=== PATIENT | male | born 1995 | race Caucasian/White ===

== ENCOUNTER 2018-09-11 03:49 | Emergency (ER) | payer OTHER ==
[~2018-09-11] VITALS: Ht 195.6 cm; Wt 145.1 kg
[2018-09-11 03:50] VITALS: BP 159/84
[2018-09-11] MEDS ORDERED: KETOROLAC 30 MG/ML VIAL. IM ONE (04:00)
--- NOTE | 2018-09-11 04:45 | RAD ---
INDICATION: Left ankle swelling COMPARISON: None. TECHNIQUE: Grayscale, color and doppler ultrasound images were obtained of the left lower extremity venous vasculature. LEFT: No thrombus identified in the common femoral vein, femoral vein, popliteal vein or visualized calf veins. IMPRESSION: 1. No thrombus identified in deep venous system of the left lower extremity. Electronically signed by: Alex Tenorio MD (09/11/2018 4:42 AM) [facility]
[2018-09-11] MEDS ORDERED: HYDR-3164 PO (05:09)
[2018-09-11] MEDS ORDERED: INDO50CA5 PO (05:09)
--- NOTE | 2018-09-11 05:54 | PHYS DOC ---
Past Medical History Past Medical History: No Pertinent History Past Surgical History: No Surgical History Alcohol Use: Occasionally Drug Use: None Adult General Chief Complaint Chief Complaint: LOWER EXT PAIN HPI HPI Patient is a 22 year old male who presents with ankle pain. No definite trauma he woke up with this he got worse no fever he does not recall a previous history of this. He has not tried anything for relief. He did take a blister on his heel but otherwise does not identify any trauma. Review of Systems Review of Systems Constitutional: Denies fever or chills [] Eyes: Denies change in visual acuity, redness, or eye pain [] HENT: Denies nasal congestion or sore throat [] Respiratory: Denies cough or shortness of breath [] Cardiovascular: No additional information not addressed in HPI [] GI: Denies abdominal pain, nausea, vomiting, bloody stools or diarrhea [] : Denies dysuria or hematuria [] Musculoskeletal: Denies back pain or joint pain [] Integument: Denies rash or skin lesions [] Neurologic: Denies headache, focal weakness or sensory changes [] Endocrine: Denies polyuria or polydipsia [] All other systems were reviewed and found to be within normal limits, except as documented in this note. Current Medications Current Medications Current Medications Medications (Trade) Dose Ordered Sig/[facility] Start Time Stop Time Status Last Admin Dose Admin Ketorolac Tromethamine (Toradol 30mg Vial) 30 mg 1X ONCE 09/11/18 04:00 09/11/18 04:01 DC 09/11/18 04:12 30 MG Allergies Allergies Allergies Coded Allergies Type Severity Reaction Last Updated Verified No Known Drug Allergies 09/11/18 No Physical Exam Physical Exam Constitutional: Well developed, well nourished, no acute distress, non-toxic appearance. [] HENT: Normocephalic, atraumatic, bilateral external ears normal, oropharynx moist, no oral exudates, nose normal. [] Eyes: PERRLA, EOMI, conjunctiva normal, no discharge. [] Neck: Normal range of motion, no tenderness, supple, no stridor. [] Cardiovascular:Heart rate regular rhythm, no murmur [] Lungs & Thorax: Bilateral breath sounds clear to auscultation [] Abdomen: Bowel sounds normal, soft, no tenderness, no masses, no pulsatile masses. [] Skin: Warm, dry, no erythema, no rash. [] ext: There is moderate tenderness of the left ankle possible effusion noted no erythema no warmth pulses present pain is present with active range of motion and some mild pain with passive range of motion as well no calf tenderness small healing blister on the heel Current Patient Data Vital Signs Vital Signs Date Time Temp Pulse Resp B/P (MAP) Pulse Ox O2 Delivery O2 Flow Rate FiO2 09/11/18 03:50 98.3 102 20 159/84 (109) 99 Room Air 98.3 EKG EKG [] Radiology/Procedures Radiology/Procedures [] Impressions: Ultrasound was negative for DVT. Prelim read of the x-ray showed no obvious fracture. final read pending. Course & Med Decision Making Course & Med Decision Making Pertinent Labs and Imaging studies reviewed. (See chart for details) 22-year-old male with ankle pain. He does appear to have some isolated mono arthritis of unclear etiology no fever no redness he would have no specific reason to have a septic joint. I did talk with him and his family about the option of doing a diagnostic arthrocentesis versus a trial of anti-inflammatory medication rest and see how he does there. He prefers the latter he knows strict return precautions to come back for fever or worsening symptoms. Final read of the x-rays pending I dont see any obvious fracture. Dragon Disclaimer Dragon Disclaimer This electronic medical record was generated, in whole or in part, using a voice recognition dictation system. Departure Departure Impression: Primary Impression: Elevated blood pressure reading Additional Impression: Ankle pain Disposition: 01 HOME, SELF-CARE Condition: STABLE Referrals: FIONA ROSARIO MD (PCP) Patient Instructions: Ankle Pain Scripts Hydrocodone/Apap 5-325 (NORCO 5-325 TABLET) 1 Each Tablet 1-2 EACH PO PRN Q6HRS PRN for PAIN, #15 as needed for pain Prov: DINORAH KNIGHT MD 09/11/18 Indomethacin (INDOMETHACIN) 50 Mg Capsule 1 CAP PO BID, #14 CAP 1 Refill Prov: DINORAH KNIGHT MD 09/11/18 Problem Qualifiers DINORAH KNIGHT MD Sep 11, 2018 05:54
--- NOTE | 2018-09-11 07:45 | RAD ---
ANKLE LEFT 3V History: pain, no trauma. Comparison: None. Findings: 3 views of the left ankle are submitted. No acute fracture or dislocation is identified. There is a focus of sclerosis with likely some subtle internal lucency of the lateral aspect of the distal tibia extending to the cortex. Impression: 1. There is a focus of sclerosis and central lucency of the lateral aspect of the distal tibia. 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 Given history of pain without any history of trauma, nonemergent MRI or bone scan may be beneficial. Electronically signed by: Abdifatah Dotson MD (09/11/2018 7:43 AM) [facility]
== END 2018-09-11 05:15 | disposition home or self-care (01) ==
LOC: ER 03:49
DX: M25.572 Pain in left ankle and joints of left foot (principal); R03.0 Elevated blood-pressure reading, without diagnosis of hypertension
CPT/HCPCS: 73610; 93971; 96372; 99284; J1885

== ENCOUNTER → 2018-09-13 | Outpatient (CLI) | payer OTHER ==
[2018-09-11 03:50] VITALS: BP 159/84
[~2018-09-13] MED LIST: HYDR-3164 PO; INDO50CA5 PO
--- NOTE | 2018-09-13 16:02 | RAD ---
MR of the left ankle HISTORY: Lateral ankle pain for 2 days. No known injury. TECHNIQUE: Routine multiplanar sequences are obtained. FINDINGS: Peroneal tendons are intact. Anterior talofibular ligament is thick and heterogeneous, compatible with sprain/scarring. No disruption or displacement. Posterior talofibular and calcaneofibular ligaments are intact. Inferior tibiofibular ligaments are intact. Posterior tibial and flexor tendons are intact. No acute medial ligament injury. Anterior tibial and extensor tendons are intact. Achilles tendon intact. No acute plantar fasciitis. Subtalar joints are patent. Tarsal sinus is intact. Talar dome is intact. Small tibiotalar, subtalar and talonavicular joint effusions. No aggressive bone destruction. No acute fracture. There is a partially visualized cortical based bone lesion at the posterior lateral tibial metaphysis, compatible with a fibrous cortical defect. There is mild soft tissue edema around the ankle greatest medially. IMPRESSION: 1. Anterior talofibular ligament sprain/scarring. 2. Small joint effusions about the ankle and hindfoot. 3. 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 Electronically signed by: Marky Lama MD (09/13/2018 3:59 PM) [facility]
== END | disposition home or self-care (01) ==
LOC: MRI 13:20
PROVIDERS: ATTEND Orthopaedic Surgery
DX: M25.472 Effusion, left ankle (principal)
CPT/HCPCS: 73721

== ENCOUNTER 2021-10-13 16:22 | Emergency (ER) | payer OTHER ==
[~2021-10-13] VITALS: Ht 195.6 cm; Wt 145.5 kg
[~2021-10-13 16:22] MED LIST changes: +INDO50CA15 PO; -INDO50CA5 PO
[2021-10-13 17:46] VITALS: BP 186/90
[2021-10-13] MEDS ORDERED: IBUPROFEN 400 MG TABLET. PO ONE (18:15)
--- NOTE | 2021-10-13 18:15 | PHYS DOC ---
Past Medical History Past Medical History: No Pertinent History Past Surgical History: No Surgical History Smoking Status: Never Smoker Alcohol Use: Occasionally Drug Use: None General Adult EDM: Chief Complaint: FOOT INJURY PAIN HPI: HPI: Patient is a 25 year old male who presents with 2 days of left foot and ankle pain and swelling. He states it only hurts when he goes to try to stand or move at the joint. He states only thing he did 2 days ago was mow the lawn. Does not remember injuring the extremity. Denies numbness and tingling or focal weakness. He does have crutches. He can put some weight on the extremity is just painful. He states a couple years ago this happened and it got better on its own with rest. Review of Systems: Review of Systems: Constitutional: Denies fever or chills. [] Eyes: Denies change in visual acuity. [] HENT: Denies nasal congestion or sore throat. [] Respiratory: Denies cough or shortness of breath. [] Cardiovascular: Denies chest pain or +Left foot edema. +Left ankle [] GI: Denies abdominal pain, nausea, vomiting, bloody stools or diarrhea. [] : Denies dysuria. [] Musculoskeletal: Denies back pain or +Left foot joint pain. +Left ankle[] Integument: Denies rash. [] Neurologic: Denies headache, focal weakness or sensory changes. [] Endocrine: Denies polyuria or polydipsia. [] Lymphatic: Denies swollen glands. [] Psychiatric: Denies depression or anxiety. [] Heart Score: C/O Chest Pain: No Current Medications: Current Medications Medications (Trade) Dose Ordered Sig/[facility] Start Time Stop Time Status Last Admin Dose Admin Ibuprofen (Motrin) 800 mg 1X ONCE 10/13/21 18:15 10/13/21 18:16 UNV Allergies: Allergies: Allergies Coded Allergies Type Severity Reaction Last Updated Verified No Known Drug Allergies 09/11/18 No Physical Exam: PE: Constitutional: Well developed, well nourished, no acute distress, non-toxic appearance. [] HENT: Normocephalic, atraumatic, bilateral external ears normal, oropharynx moist, no oral exudates, nose normal. [] Eyes: PERRLA, EOMI, conjunctiva normal, no discharge. [] Neck: Normal range of motion, no tenderness, supple, no stridor. [] Cardiovascular:Heart rate regular rhythm, no murmur [] Lungs & Thorax: Bilateral breath sounds clear to auscultation [] Abdomen: Bowel sounds normal, soft, no tenderness, no masses, no pulsatile masses. [] Skin: Warm, dry, no erythema, no rash. [] Back: No tenderness, no CVA tenderness. [] Extremities: No tenderness, no cyanosis, no clubbing, ROM intact but limited due to pain, 2-3+ edema. [] Neurologic: Alert and oriented X 3, normal motor function, normal sensory function, no focal deficits noted. [] Psychologic: Affect normal, judgement normal, mood normal. [] Current Patient Data: Vital Signs: Vital Signs Date Time Temp Pulse Resp B/P (MAP) Pulse Ox O2 Delivery O2 Flow Rate FiO2 10/13/21 17:46 97.5 109 22 186/90 (122) 97 Room Air 97.5 EKG: EKG: [] Radiology/Procedures: Radiology/Procedures: [] Impression: [facility] [address] [place] [address] IMAGING REPORT Signed PATIENT: MORRO GONZALEZ MACCOUNT: [id number] : 1995 LOCATION: ER AGE: 25 SEX: M EXAM STATUS: PRE ER ORD. PHYSICIAN: SHIRA ZAMBRANO APRN REASON: pain and swelling PROCEDURE: ANKLE LEFT 3V Exam Date: 10/13/2021 6:19 PM XR EXAM OF ANKLE_LEFT 3V, XR FOOT_LEFT 3 VIEWS Indication: Pain. Reason: pain and swelling / Spl. Instructions: / History: . COMPARISON: September 11, 2018 FINDINGS/ IMPRESSION: Ankle mortise is intact. Cortical sclerosis along the distal tibial metaphysis laterally is consistent with nonossifying fibroma, similar compared to the prior exam. There is soft tissue swelling around the ankle. No acute fracture or dislocation. Alignment is maintained. Mild degenerative changes are noted. Electronically signed by: Autumn Dickson MD (10/13/2021 6:53 PM) [id number] DICTATED and SIGNED BY: AUTUMN DICKSON MD DATE: 10/13/211844 Course & Med Decision Making: Course & Med Decision Making Pertinent Labs and Imaging studies reviewed. (See chart for details) See HPI. Alert and oriented x4. Ambulatory but limping on the left lower extremity. Pedal pulse are present. Cap refill less than 2 seconds. Skin pink warm and dry. No calf tenderness. No recent injury, travel or procedures done to the extremity. Can wiggle his toes. Full strengths. Neurologically intact. There is no tenderness. No redness or warmth to the joint. He is does state that it is better when he stands on it but puts more pressure on the ball of his foot. He states he cannot put any pressure on the heel of his foot. States its a throbbing/sharp type pain. No calf tenderness. No swelling of past ankle. No deformity. No bruising, abrasion or laceration. Uric acid is 9.4. Patient placed on steroid, anti inflammatory. Dr Arellano states no Colchicine at this time. Patient given Lio wrap. She currently has crutches with him. 2019 MRI IMPRESSION: 1. Anterior talofibular ligament sprain/scarring. 2. Small joint effusions about the ankle and hindfoot. 3. 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 [] Camryn Disclaimer: Camryn Disclaimer: This electronic medical record was generated, in whole or in part, using a voice recognition dictation system. Departure Departure Impression: Primary Impression: Ankle pain, left Qualified Codes: M25.572 - Pain in left ankle and joints of left foot Additional Impressions: Foot pain, left Elevated uric acid in blood Disposition: HOME / SELF CARE / HOMELESS Condition: STABLE Referrals: FIONA ROSARIO MD (PCP) EBER SHANNON II, MD Patient Instructions: Gout, Uric Acid Test Additional Instructions: Follow-up with a primary care provider or an orthopedic doctor. Use ice and elevation. Take medication as prescribed and with food. If there is any redness, and tenderness and increased swelling to the joint and come back to the emergency room. Scripts Prednisone (PREDNISONE ) 10 Mg Tablet 3 TAB PO DAILY for 5 Days, #15 TAB 0 Refills Prov: KENYASHIRACHEYENNE Reyes APRN 10/13/21 Diclofenac Sodium (DICLOFENAC SODIUM) 50 Mg Tablet.dr 50 MG PO TID for 14 Days, #42 TAB Prov: SHIRA ZAMBRANO APRN 10/13/21 SHIRA ZAMBRANO APRN Oct 13, 2021 18:15
--- NOTE | 2021-10-13 18:55 | RAD ---
Exam Date: 10/13/2021 6:19 PM XR EXAM OF ANKLE_LEFT 3V, XR FOOT_LEFT 3 VIEWS Indication: Pain. Reason: pain and swelling / Spl. Instructions: / History: . COMPARISON: September 11, 2018 FINDINGS/ IMPRESSION: Ankle mortise is intact. Cortical sclerosis along the distal tibial metaphysis laterally is consiste nt with nonossifying fibroma, similar compared to the prior exam. There is soft tissue swelling arou nd the ankle. No acute fracture or dislocation. Alignment is maintained. Mild degenerative changes are noted. Electronically signed by: Deon Dickson MD (10/13/2021 6:53 PM) [id number]
[2021-10-13 19:01] LABS: BASO # 0.1 x10^3/uL (0.0-0.2); BASO % 1 % (0-3); EOS # 0.3 x10^3/uL (0.0-0.7); EOS % 2 % (0-3); HEMATOCRIT 44.2 % (39.0-53.0); HEMOGLOBIN 15.3 g/dL (13.0-17.5); LYMPH # 2.4 x10^3/uL (1.0-4.8); LYMPH % 20 % (24-48); MEAN CORPUSCULAR HEMOGLOBIN 31 pg (25-35); MEAN CORPUSCULAR HGB CONC 35 g/dL (31-37); MEAN CORPUSCULAR VOLUME 89 fL (79-100); MONO # 0.9 x10^3/uL (0.0-1.1); MONO % 8 % (0-9); NEUT # 8.6 x10^3/uL (1.8-7.7); NEUT % 70 % (31-73); PLATELET COUNT 218 x10^3/uL (140-400); RED BLOOD COUNT 4.95 x10^6/uL (4.30-5.70); RED CELL DISTRIBUTION WIDTH 12.5 % (11.5-14.5); WHITE BLOOD COUNT 12.2 x10^3/uL (4.0-11.0)
[2021-10-13 19:15] LABS: CALCIUM 9.5 mg/dL (8.5-10.1); CREATININE 1.1 mg/dL (0.7-1.3); GFR 80.3; POTASSIUM 3.7 mmol/L (3.5-5.1)
[2021-10-13 19:21] LABS: ALBUMIN 4.1 g/dL (3.4-5.0); ALBUMIN/GLOBULIN RATIO 0.8 (1.0-1.7); TOTAL BILIRUBIN 0.7 mg/dL (0.2-1.0); URIC ACID 9.4 mg/dL (3.5-7.2)
[2021-10-13] MEDS ORDERED: PRED-220 PO (19:40)
[2021-10-13] MEDS ORDERED: DICL50TA4 PO (19:40)
[2021-10-14 17:59] LABS: C-REACTIVE PROTEIN 42.8 mg/L (0-3.3)
== END 2021-10-13 20:03 | disposition home or self-care (01) ==
LOC: ER 16:22
DX: M25.572 Pain in left ankle and joints of left foot (principal); M79.672 Pain in left foot; R79.89 Other specified abnormal findings of blood chemistry
CPT/HCPCS: 36415; 73610; 73630; 80053; 84550; 85025; 85651; 86140; 99284